=== PATIENT | female | born 1985 | race Two or more races ===

== ENCOUNTER → 2025-07-14 | Outpatient (CLI) | payer MEDICAID, SELFPAY ==
--- NOTE | 2025-07-14 08:30 | XR_ITS ---
EXAMINATION: Thyroid sonography complete TECHNIQUE: Grayscale sonographic images thyroid lobes Date and time: July 14, 2025, 10:30 a.m. INDICATIONS: History thyroid nodules FINDINGS: Right thyroid 5.0 cm Left thyroid 4.4 cm No thyroid nodules IMPRESSION: No thyroid nodules
[2025-07-14 09:25] LABS: Basophils # (Auto) 0.0 Thou/mm3 (0.0-0.2); Basophils % (Auto) 0 % (0-2.5); Eosinophils # (Auto) 0.0 Thou/mm3 (0.0-0.5); Eosinophils % (Auto) 1 % (0-10); Hematocrit 34.6 % (36.0-46.0); Hemoglobin 11.1 g/dL (12.0-16.0); Immature Granulocytes Auto 0.02 Thou/mm3 (0.00-0.00); Lymphocytes # (Auto) 2.1 Thou/mm3 (1.0-4.8); Lymphocytes % (Auto) 33 % (10-50); Mean Corpuscular HGB Conc 32.1 g/dl (31.0-37.0); Mean Corpuscular Hemoglobin 26.1 pg (25.0-35.0); Mean Corpuscular Volume 81 fL (80-100); Monocytes # (Auto) 0.5 Thou/mm3 (0.0-0.8); Monocytes % (Auto) 7 % (0-12); Neutrophils # (Auto) 3.7 Thou/mm3 (1.8-7.7); Neutrophils % (Auto) 58 % (37-80); Nucleated Red Blood Cell # 0.00 Thou/mm3 (0.00-0.00); Nucleated Red Blood Cell % 0 /100 WBC (0); Platelet Count 328 Thou/mm3 (140-440); RDW Standard Deviation 50.1 fL (36.4-46.3); Red Blood Count 4.25 Miln/mm3 (4.00-5.20); White Blood Count 6.4 Thou/mm3 (3.6-11.0)
[2025-07-14 09:32] LABS: INR 1.0 (0.9-1.3); Partial Thromboplastin Time 24.7 Seconds (22.0-36.0); Prothrombin Time 10.5 Seconds (9.0-12.2)
[2025-07-14 09:40] LABS: HCG,Qualitative Serum Negative
== END | disposition home or self-care (01) ==
LOC: SIRX 09:01
PROVIDERS: Radiology Diagnostic Radiology; PCP Family Medicine; Referring Provider Family Medicine; Visit Provider Family Medicine
DX: E04.2 Nontoxic multinodular goiter (principal); Z53.8 Procedure and treatment not carried out for other reasons; Z01.812 Encounter for preprocedural laboratory examination
CPT/HCPCS: 36415; 76536; 84703; 85025; 85610; 85730